=== PATIENT | male | born 1960 | race Caucasian/White ===

== ENCOUNTER 2019-01-20 13:37 | Inpatient (IN) | payer BC, MEDICARE, OTHER ==
[2019-01-20 14:11] LABS: #Basophils 0.1 thou/uL (0.0-0.2); #Eosinphils 0.2 thou/uL (0.0-0.7); #Lymphocytes 3.1 thou/uL (1.20-3.40); #Monocytes 1.2 thou/uL (0.11-0.59); #Neutrophils 10.4 thou/uL (1.40-6.50); %Basophils 0.5 % (0.0-1.0); %Eosinophils 1.6 % (0.0-10.0); %Lymphocytes 20.5 % (21.0-51.0); %Monocytes 8.2 % (0.0-10.0); %Neutrophils 69.2 % (42.0-75.0); Hemoglobin 12.7 g/dL (14.0-18.0); Mean Corpuscular HGB CONC 33.5 g/dL (32.0-36.0); Mean Corpuscular Hemoglobin 28.4 pg (27.0-31.0); Mean Corpuscular Volume 84.6 fL (78.0-98.0); Mean Platelet Volume 6.9 fL (7.4-10.4); Platelet Count 388 thou/uL (130-400); RBC Distribution Width 14.4 % (11.5-14.5); Red Blood Cell (RBC) Count 4.49 mill/uL (4.70-6.10)
--- NOTE | 2019-01-20 14:15 | RAD ---
Exam:Right foot 3 views HISTORY: Infection COMPARISON: None FINDINGS: Subcutaneous emphysema and swelling involving the soft tissues at the level of the first an d second digit. Erosive changes involving the distal third metatarsal, proximal third phalanx and proximal fourth phalanx. Correlate for osteomyelitis. IMPRESSION: 1. Soft tissue swelling and subcutaneous emphysema, worrisome for cellulitis at the level of the firs t and second digit. Possible osteomyelitis involving the third and fourth digit.
[2019-01-20 14:34] LABS: ALT (SGPT) 9 U/L (8-55); AST (SGOT) 15 U/L (5-34); Albumin 3.6 g/dL (3.5-5.0); Alkaline Phosphatase 89 U/L (40-150); Anion Gap 18 mmol/L (10-20); BUN (Urea Nitrogen) 14 mg/dL (8.4-25.7); Bilirubin, Total 0.3 mg/dL (0.2-1.2); Calc. Creatinine Clearance 0 mL/min (70-130); Calcium 10.3 mg/dL (7.8-10.44); Carbon Dioxide 24 mmol/L (22-29); Chloride 89 mmol/L (98-107); Estimated GFR-MDRD Greater than 90; Globulin 4.7 g/dL (2.4-3.5); Glucose 105 mg/dL (70-105); Potassium 4.5 mmol/L (3.5-5.1); Protein, Total 8.3 g/dL (6.0-8.3); Sodium 126 mmol/L (136-145)
[2019-01-20] MEDS ORDERED: Cefepime 2 GM VIAL ONE (16:03)
[2019-01-20] MEDS ORDERED: Ondansetron ODT 4 MG TAB PO PRN (17:46)
[2019-01-20] MEDS ORDERED: Ondansetron PF 4 MG/2 ML Vial IVP PRN (17:46)
[2019-01-20] MEDS ORDERED: HumaLOG 300 UNITS/3 ML VIAL SC PRN ×2 (17:52)
[2019-01-20] MEDS ORDERED: Dextrose 50% Abboject 50 ML SYRINGE SLOW IVP PRN (17:52)
[2019-01-20] MEDS ORDERED: Dextrose 5% in Water 1,000 ML IV PRN (17:52)
[2019-01-20 19:19] VITALS: BMI 28.5
[2019-01-20] MEDS: Sodium Chloride 0.9% 1,000 ML IV SCH (19:49)
[2019-01-20] MEDS: Enoxaparin Sodium 40 MG/0.4 ML SYRINGE SC SCH (20:19)
[2019-01-20] MEDS: Famotidine 20 MG TAB PO SCH (20:19)
[2019-01-20] MEDS: Piperacillin/Tazobactam 3.375 GM in Sodium Chloride 0.9% 100 ML IVPB SCH (20:19)
--- NOTE | 2019-01-20 23:23 | HP ---
PRIMARY CARE PHYSICIAN: Dr. Sapna Finney in [place], [place]. CHIEF COMPLAINT: Right lower extremity toe discoloration and infection. HISTORY OF PRESENT ILLNESS: Mr. Rivero is a pleasant 58-year-old male with past medical history significant for type 2 diabetes mellitus, peripheral vascular disease, and obesity, who presented to the hospital today at the behest of Dr. Frazier, with the above complaints. The patient had, had a nonhealing ulcer of the right great toe with subsequent infections spreading to the second, requiring amputation of the right great toe and second toe on December 26, 2018. The patient had been doing well and was continuing to heal well, however, on Monday, approximately 5 days ago, he noticed some discoloration of the 3rd toe. He does remember that although he had been quite careful with his foot, he did step into a pothole of some sort causing some injury to that third digit. In any case, the discoloration became worse, and so he presented to the emergency department for further workup and treatment. The patient denies any nausea or vomiting. No fever or chills. He denies any systemic symptoms at this time. Workup on arrival has included a 3 view x-ray of his right foot, which showed soft tissue swelling and subcutaneous emphysema, worrisome for cellulitis at the level of the first and second digits with possible osteomyelitis involving the third and fourth digits. [place] [id number]. The patient has been afebrile, but was mildly tachycardic on arrival, which has improved with IV fluids. The patient denies any pain from his right lower extremity. The patient does have a history of peripheral vascular disease, status post balloon angioplasty in the past with Dr. Alfaro of [facility]. Records are currently unavailable, so it is unclear on the extent of his peripheral vascular disease and more details about those interventions. He is on aspirin and Plavix. REVIEW OF SYSTEMS: A 12-point review of systems performed and is negative except that stated above. PAST MEDICAL HISTORY: Type 2 diabetes mellitus, hypothyroidism, peripheral vascular disease, nonhealing wound of the right great toe, which has resulted in amputation of the first and second digits on the right foot. PAST SURGICAL HISTORY: Amputation as described above, some type of cardiac catheterization and ablation, which is currently unclear. The patient stated that he had some type of tissue surrounding an artery that was removed. He has also had a surgical brittney placed to the left forearm after previous fracture. SOCIAL HISTORY: The patient is and lives in a small town called [place], [place], which is located outside of [place], [place]. He lives with his and disabled daughter. He denies any alcohol use or illicit drug use. He has no smoking history. FAMILY HISTORY: Noncontributory. ALLERGIES: PENICILLINS. HOME MEDICATIONS: 1. Metformin 1000 mg p.o. b.i.d. with meals. 2. Bactrim 2 tabs p.o. b.i.d. 3. Tramadol 50 mg p.o. q.6 hours p.r.n. 4. Aspirin 81 mg daily. 5. Plavix 75 mg p.o. daily. 6. Levothyroxine 25 mcg tab one p.o. daily. PHYSICAL EXAMINATION: VITAL SIGNS: Blood pressure 151/84, pulse is 93, O2 saturation is 97% on room air, respirations 16, and temperature 98.2. GENERAL: This is an obese male, resting comfortably in the ER bed, in no acute distress. HEENT: Head is atraumatic and normocephalic. Mucous membranes are moist. NECK: Trachea is midline. No carotid bruits. No JVD. CV: S1 and S2. Regular rate and rhythm. No appreciable murmurs, rubs, or gallops. LUNGS: Regular respiratory rate and pattern, overall clear to auscultation bilaterally. ABDOMEN: Positive bowel sounds. Soft, nontender. NEUROLOGIC: Cranial nerves 2 through 12 are grossly intact. The patient is nonfocal. EXTREMITIES: No appreciable pitting edema. Examination of right foot shows amputation of the right great toe and second toe. Surgical wound has no obvious drainage, stitches are in place. His third toe shows some obvious gangrenous changes and erythema extending to the fourth digit and proximally toward the dorsal surface of the foot. There are some desquamation and foul smelling odor as well. LABORATORY DATA: White blood cell count 98159, hemoglobin 12.7, hematocrit 38, platelets are 388. Sodium 126, potassium 4.5, chloride 89, carbon dioxide 24, BUN is 14, creatinine 0.71. Lactic acid was 2.6 and 1.0 respectively. AST 15, ALT 9, alkaline phosphatase is 89, and albumin is 3.6. ASSESSMENT: 1. Osteomyelitis of the third and fourth toes of right lower extremity, patient meeting sepsis criteria on arrival. 2. Status post recent amputation of the great and second toe of the right foot on December 26, 2018 after nonhealing diabetic foot ulcer. 3. Peripheral vascular disease, status post balloon angioplasty with Dr. Alfaro in [place]. 4. Type 2 diabetes mellitus. 5. Hyponatremia. PLAN: At this time, Dr. Frazier has been consulted for possible amputation of the third and fourth toes vs transmetarsal amputation. We will obtain an MRI as well as a right lower extremity Doppler to assess the extent of his peripheral vascular disease. We will try and obtain records from Dr. Alfaro at [facility]. I will continue his home medications. We will cover empirically with vancomycin and Zosyn, and continue IV fluid resuscitation as the patient did meet sepsis criteria on arrival. We will obtain an A1c as well as repeat lab work in the morning. Further recommendations based on hospital course. Blood cultures pending. Job ID: [id number] MTDD
[2019-01-21] MEDS: Piperacillin/Tazobactam 3.375 GM in Sodium Chloride 0.9% 100 ML IVPB SCH ×4 (01:46→20:12)
[2019-01-21] MEDS: Vancomycin HCl 1 GM in Premix Bag 1 BAG IVPB SCH ×2 (05:53→18:35)
[2019-01-21] MEDS: Levothyroxine Sodium 25 MCG TAB PO SCH (05:53)
[2019-01-21] MEDS: Sodium Chloride 0.9% 1,000 ML IV SCH ×3 (05:55→20:15)
[2019-01-21 06:22] LABS: #Eosinphils 0.3 thou/uL (0.0-0.7); #Lymphocytes 1.9 thou/uL (1.20-3.40); #Neutrophils 6.9 thou/uL (1.40-6.50); %Basophils 0.4 % (0.0-1.0); %Eosinophils 3.4 % (0.0-10.0); %Lymphocytes 18.7 % (21.0-51.0); %Monocytes 10.1 % (0.0-10.0); %Neutrophils 67.5 % (42.0-75.0); Hemoglobin 10.8 g/dL (14.0-18.0); Mean Corpuscular HGB CONC 31.8 g/dL (32.0-36.0); Mean Corpuscular Hemoglobin 27.1 pg (27.0-31.0); Mean Corpuscular Volume 85.2 fL (78.0-98.0); Mean Platelet Volume 6.9 fL (7.4-10.4); Platelet Count 305 thou/uL (130-400); RBC Distribution Width 14.4 % (11.5-14.5); Red Blood Cell (RBC) Count 3.99 mill/uL (4.70-6.10); White Blood Cell (WBC) Count 10.2 thou/uL (4.8-10.8)
[2019-01-21 06:36] LABS: Anion Gap 13 mmol/L (10-20); BUN (Urea Nitrogen) 10 mg/dL (8.4-25.7); Calc. Creatinine Clearance 177 mL/min (70-130); Calcium 9.3 mg/dL (7.8-10.44); Carbon Dioxide 25 mmol/L (22-29); Chloride 94 mmol/L (98-107); Estimated GFR-MDRD Greater than 90; Glucose 114 mg/dL (70-105); Potassium 3.9 mmol/L (3.5-5.1); Sodium 128 mmol/L (136-145)
[2019-01-21] MEDS: Clopidogrel Bisulfate 75 MG TAB PO SCH (08:17)
[2019-01-21] MEDS: Saccharomyces boulardii 250 MG CAP PO SCH (08:17)
[2019-01-21] MEDS: Famotidine 20 MG TAB PO SCH ×2 (08:17→20:11)
[2019-01-21] MEDS: Aspirin 81 mg Enteric Coated Tablet PO SCH (08:18)
--- NOTE | 2019-01-21 11:21 | ULT ---
ULTRASOUND DOPPLER DUPLEX ARTERIAL RIGHT LOWER EXTREMITY: DATE: 01/21/2019. HISTORY: A 58-year-old male with osteomyelitis of right toes. Peripheral vascular disease. TECHNIQUE: Sethi scale, color flow, and spectral analysis, of major arteries of right lower extremity. FINDINGS: Moderate to severe, heavily calcified atheromatous plaque throughout all visualized arteries. Highest peak systolic velocities in cm/s followed by pulsed Doppler waveforms: Common femoral: 105, biphasic Profunda femoral: 95, biphasic Superficial femoral, proximal: 125, triphasic Superficial femoral, mid: 85, triphasic Superficial femoral, distal: 90, triphasic Popliteal, proximal: 75, triphasic Popliteal, mid: 80, triphasic Popliteal, distal: 150, triphasic Posterior tibial, proximal: 20, monophasic Posterior tibial, mid: 30, monophasic Posterior tibial, distal: 30, monophasic Anterior tibial, proximal: 30, monophasic Anterior tibial, mid: 15, monophasic Anterior tibial, distal: 15, monophasic Dorsalis pedis: 100, monophasic IMPRESSION: 1. Significant atherosclerosis throughout all arteries of right lower extremity. 2. Evidence for high-grade arterial occlusive disease in right leg distal to the knee. POS: CET
--- NOTE | 2019-01-21 16:10 | PDOC.HOSPP ---
- Subjective Encounter Date: 01/21/19 Encounter Time: 15:50 Subjective: f/u for R foot osteomyelitis and PVD. Currently on Zosyn/Vancomycin. No new complaints. Had recent angioplasty and stent of bilat LE's within the last 4 weeks in [place], [place]. - Objective Vital Signs & Weight: Vital Signs (12 hours) Temp Pulse Resp BP BP Pulse Ox 01/21/19 11:06 98.6 F 87 16 146/76 H 96 01/21/19 07:43 97.8 F 85 16 155/82 H 98 01/21/19 04:11 98.2 F 93 16 144/80 H 97 Weight Admit Weight 205 lb 0.126 oz Weight 205 lb 0.126 oz Result Diagrams: 01/21/19 05:50 01/21/19 05:50 Additional Labs: Accuchecks 01/21/19 01/20/19 04:16 19:45 POC Glucose 114 H 107 Microbiology 01/20/19 14:01 Venous blood - Right Hand Blood Culture - Preliminary Specimen has been received and culture in progress. No Growth to date. 01/20/19 14:01 Venous blood - Left Arm Blood Culture - Preliminary Specimen has been received and culture in progress. No Growth to date. Laboratory Tests 01/20/19 01/20/19 01/20/19 14:01 14:01 14:01 WBC 15.0 H Sodium 126 L Lactic Acid 2.6 H 01/20/19 17:56 WBC Sodium Lactic Acid 1.0 Radiology Reviewed by me: Yes (LE duplex art sono - severe PVD below the knee on R) ROS - Medication Medications: Active Medications Generic Name Dose Route Start Last Admin Trade Name Ean PRN Reason Stop Dose Admin Aspirin 81 mg 01/21/19 09:00 01/21/19 08:18 Ecotrin PO 81 mg DAILY MARLYN Administration Clopidogrel Bisulfate 75 mg 01/21/19 09:00 01/21/19 08:17 Plavix PO 75 mg DAILY MARLYN Administration Enoxaparin Sodium 40 mg 01/20/19 21:00 01/20/19 20:19 Lovenox SC Not Given 2100 MARLYN Famotidine 20 mg 01/20/19 21:00 01/21/19 08:17 Pepcid PO 20 mg BID MARLYN Administration Sodium Chloride 1,000 mls @ 100 mls/hr 01/20/19 18:00 01/21/19 05:55 Normal Saline 0.9% IV 1,000 mls .Q10H MARLYN Administration Vancomycin HCl 1 gm/ Device 200 mls @ 200 mls/hr 01/21/19 06:00 01/21/19 05: 53 IVPB 200 mls 0600,1800 MARLYN Administration Piperacillin Sod/Tazobactam 100 mls @ 200 mls/hr 01/20/19 20:00 01/21/19 14: 48 Sod 3.375 gm/ Sodium Chloride IVPB 100 mls 0200,0800,1400,2000 MARLYN Administration Levothyroxine Sodium 25 mcg 01/21/19 06:00 01/21/19 05:53 Synthroid PO 25 mcg 0600 MARLYN Administration Saccharomyces Boulardii 250 mg 01/21/19 09:00 01/21/19 08:17 Florastor PO 250 mg DAILY MARLYN Administration - Exam NAD, awake alert Eye: PERRL, anicteric sclera ENT: normocephalic atraumatic, no oropharyngeal lesions Neck: supple, symmetric, no JVD, no thyromegaly, no lymphadenopathy Heart: RRR, no murmur, no gallops, no rubs, diminshed peripheral pulses Respiratory: CTAB, no wheezes, no rales, no ronchi, normal chest expansion Gastrointestinal: soft, non-tender, non-distended, normal bowel sounds Extremities: no cyanosis, 1+ LE edema Extremeties - other findings: R foot with kerlex dressing in place Skin: normal turgor Skin - other findings: diminished DP/PT pulses on R Neurological: CN's grossly intact, no focal deficits, no new deficit Musculoskeletal: normal tone, normal strength Psychiatric: normal affect, normal behavior, A&O x 3 Hosp A/P (1) Osteomyelitis of right foot Code(s): M86.9 - OSTEOMYELITIS, UNSPECIFIED Status: Acute Qualifiers: Osteomyelitis type: subacute Qualified Code(s): M86.271 - Subacute osteomyelitis, right ankle and foot Plan: Suspected given plain radiographs, check MRI of R foot to confirm, continue Zosyn/Vancomycin, consult Podiatry for surgical consideration (2) PVD (peripheral vascular disease) Code(s): I73.9 - PERIPHERAL VASCULAR DISEASE, UNSPECIFIED Status: Chronic Plan: Consult Vascular Surgery for evaluation, hx of prior angioplasty/stent to RLE, continue ASA/Plavix (3) Hyponatremia Code(s): E87.1 - HYPO-OSMOLALITY AND HYPONATREMIA Status: Chronic Plan: Suspect chronic component, serial monitoring (4) DM (diabetes mellitus) type II uncontrolled, periph vascular disorder Code(s): E11.51 - TYPE 2 DIABETES W DIABETIC PERIPHERAL ANGIOPATH W/O GANGRENE; E11.65 - TYPE 2 DIABETES MELLITUS WITH HYPERGLYCEMIA Status: Chronic Plan: Resume Metformin, serial accuchecks - Plan continue antibiotics, out of bed/ambulate Stable currently Consult Vasc Surgery for opinion regarding RLE PVD and lack of flow in distal RLE Continue ASA/Plavix Continue Vanc/Zosyn WCT for local care AM lab: BMP, CBC
[2019-01-21 18:07] LABS: Vancomycin, Trough 5.9 ug/mL
[2019-01-21] MEDS: Enoxaparin Sodium 40 MG/0.4 ML SYRINGE SC SCH (19:07)
[2019-01-22] MEDS: Piperacillin/Tazobactam 3.375 GM in Sodium Chloride 0.9% 100 ML IVPB SCH ×4 (01:43→22:06)
[2019-01-22] MEDS: Levothyroxine Sodium 25 MCG TAB PO SCH (05:18)
[2019-01-22] MEDS: Vancomycin HCl 1 GM in Premix Bag 1 BAG IVPB SCH (05:18)
[2019-01-22 05:39] LABS: Hemoglobin 11.6 g/dL (14.0-18.0); MDiff Complete? YES; Mean Corpuscular Hemoglobin 28.2 pg (27.0-31.0); Mean Corpuscular Volume 85.4 fL (78.0-98.0); Mean Platelet Volume 7.6 fL (7.4-10.4); Platelet Count 302 thou/uL (130-400); RBC Distribution Width 14.6 % (11.5-14.5); Red Blood Cell (RBC) Count 4.12 mill/uL (4.70-6.10); White Blood Cell (WBC) Count 8.8 thou/uL (4.8-10.8)
[2019-01-22 05:40] LABS: Eosinophils 4 % (0-10); Lymphocytes 19 % (21-51); Monocytes 8 % (0-10); Neutrophil 69 % (42-75); Platelet Morphology Comment Appears Adequate
[2019-01-22 05:49] LABS: Anion Gap 13 mmol/L (10-20); BUN (Urea Nitrogen) 6 mg/dL (8.4-25.7); Calc. Creatinine Clearance 151 mL/min (70-130); Calcium 9.4 mg/dL (7.8-10.44); Carbon Dioxide 25 mmol/L (22-29); Chloride 98 mmol/L (98-107); Estimated GFR-MDRD Greater than 90; Glucose 138 mg/dL (70-105); Potassium 4.7 mmol/L (3.5-5.1); Sodium 131 mmol/L (136-145)
[2019-01-22] MEDS: Aspirin 81 mg Enteric Coated Tablet PO SCH (08:53)
[2019-01-22] MEDS: Clopidogrel Bisulfate 75 MG TAB PO SCH (08:53)
[2019-01-22] MEDS: Saccharomyces boulardii 250 MG CAP PO SCH (08:53)
[2019-01-22] MEDS: Famotidine 20 MG TAB PO SCH ×2 (08:53→22:06)
[2019-01-22] MEDS: Sodium Chloride 0.9% 1,000 ML IV SCH ×2 (08:54→22:07)
[2019-01-22] MEDS: traMADol HCl 50 MG TAB PO PRN (08:56)
[2019-01-22] MEDS ORDERED: Vancomycin HCl 1.5 GM in Sodium Chloride 0.9% 250 ML 300 ML IVPB SCH (11:00)
[2019-01-22] MEDS ORDERED: Vancomycin HCl 500 MG in Sodium Chloride 0.9% 100 ML IVPB SCH (11:30)
[2019-01-22] MEDS ORDERED: VANCOMYCIN IVPB PRN (12:12)
--- NOTE | 2019-01-22 12:19 | MRI ---
Right foot MRI with and without IV contrast: HISTORY: Infection right foot, possible osteomyelitis, wounds. FINDINGS: Amputation changes are noted of the first and second toes at the level of the mid distal metatarsals with abnormal marrow signal evidence for osteomyelitis. There is extensive soft tissue wound distal to the amputated first and second metatarsals and medial to the third metatarsal phalangeal joint reg ion evidence for soft tissue gas and soft tissue infection. There is some abnormal T1 and T2 signal within the fourth distal metatarsal and proximal phalanx evidence for osteomyelitis. There is also ab normal marrow signal involving the distal third metatarsal and proximal phalanx evidence for osteomyelitis. No evidence for an overt drainable abscess. Nonspecific T2 hyperintensity within the i ntrinsic muscles of the foot which certainly can be seen in diabetes. Diffuse primarily dorsal and medial subcutaneous swelling evidence for cellulitis. Exam is severely limited because of extensive motion artifact. IMPRESSION: Extensive soft tissue gas evidence for soft tissue infection distal to the fourth and fifth amputated metatarsals and medial to the third metatarsal phalangeal joint region. Evidence for osteomyelitis involving the distal fifth metatarsal, distal fourth metatarsal, and metat arsal and proximal phalanges of the third and fourth toes. Very extensive open wound extending from medially to the distal amputated first and second metatarsal as well as around the third metatarsal p halangeal joint region
--- NOTE | 2019-01-22 15:33 | PDOC.HOSPP ---
- Subjective Encounter Date: 01/22/19 Encounter Time: 15:10 Subjective: f/u for R foot gangrene, osteomyelitis confirmed on MRI. Plan for transmetatarsal amputation on 01/24/19. - Objective Vital Signs & Weight: Vital Signs (12 hours) Temp Pulse Resp BP Pulse Ox 01/22/19 08:00 93 L 01/22/19 07:56 97.5 F L 91 20 142/63 H 93 L Weight Admit Weight 205 lb 0.126 oz Weight 205 lb 0.126 oz Result Diagrams: 01/22/19 05:08 01/22/19 05:08 Additional Labs: Accuchecks 01/22/19 01/22/19 01/21/19 12:58 04:13 19:41 POC Glucose 143 H 183 H 163 H 01/21/19 01/21/19 16:44 11:08 POC Glucose 154 H 156 H Microbiology 01/20/19 14:01 Venous blood - Right Hand Blood Culture - Preliminary Specimen has been received and culture in progress. No Growth to date. 01/20/19 14:01 Venous blood - Left Arm Blood Culture - Preliminary Specimen has been received and culture in progress. No Growth to date. Laboratory Tests 01/20/19 01/20/19 01/20/19 14:01 14:01 14:01 WBC 15.0 H Sodium 126 L Lactic Acid 2.6 H 01/20/19 17:56 WBC Sodium Lactic Acid 1.0 Radiology Reviewed by me: Yes (MRI R foot - extensive necrosis, osteomyelitis of metatarsals/phalanges) Hospitalist ROS - Medication Medications: Active Medications Generic Name Dose Route Start Last Admin Trade Name Ean PRN Reason Stop Dose Admin Aspirin 81 mg 01/21/19 09:00 01/22/19 08:53 Ecotrin PO 81 mg DAILY MARLYN Administration Clopidogrel Bisulfate 75 mg 01/21/19 09:00 01/22/19 08:53 Plavix PO 75 mg DAILY MARLYN Administration Enoxaparin Sodium 40 mg 01/20/19 21:00 01/21/19 19:07 Lovenox SC Not Given 2100 MARLYN Famotidine 20 mg 01/20/19 21:00 01/22/19 08:53 Pepcid PO 20 mg BID MARLYN Administration Sodium Chloride 1,000 mls @ 100 mls/hr 01/20/19 18:00 01/22/19 08:54 Normal Saline 0.9% IV 1,000 mls .Q10H MARLYN Administration Piperacillin Sod/Tazobactam 100 mls @ 200 mls/hr 01/20/19 20:00 01/22/19 14: 34 Sod 3.375 gm/ Sodium Chloride IVPB 100 mls 0200,0800,1400,2000 MARLYN Administration Levothyroxine Sodium 25 mcg 01/21/19 06:00 01/22/19 05:18 Synthroid PO 25 mcg 0600 MARLYN Administration Saccharomyces Boulardii 250 mg 01/21/19 09:00 01/22/19 08:53 Florastor PO 250 mg DAILY MARLYN Administration Tramadol HCl 50 mg 01/20/19 18:02 01/22/19 08:56 Ultram PO 50 mg Q6H PRN Administration Moderate Pain (4-6) - Exam General Appearance: NAD, awake alert Eye: PERRL, anicteric sclera ENT: normocephalic atraumatic, no oropharyngeal lesions Neck: supple, symmetric, no JVD, no thyromegaly, no lymphadenopathy Heart: RRR, no murmur, no gallops, no rubs Respiratory: CTAB, no wheezes, no rales, no ronchi, normal chest expansion Gastrointestinal: soft, non-tender, non-distended, normal bowel sounds Extremeties - other findings: R foot with extensive gangrenous changes, necrosis Neurological: CN's grossly intact, no new deficit Musculoskeletal: normal tone, normal strength Psychiatric: normal affect, normal behavior, A&O x 3 Hosp A/P (1) Gangrene of right foot Code(s): I96 - GANGRENE, NOT ELSEWHERE CLASSIFIED Status: Acute Plan: Extensive necrosis of R distal foot, plan for transmetatarsal amputation on 01/24, continue IV Vanc/Zosyn (2) Osteomyelitis of right foot Code(s): M86.9 - OSTEOMYELITIS, UNSPECIFIED Status: Acute Qualifiers: Osteomyelitis type: subacute Qualified Code(s): M86.271 - Subacute osteomyelitis, right ankle and foot Plan: See above in #1 (3) PVD (peripheral vascular disease) Code(s): I73.9 - PERIPHERAL VASCULAR DISEASE, UNSPECIFIED Status: Chronic (4) Hyponatremia Code(s): E87.1 - HYPO-OSMOLALITY AND HYPONATREMIA Status: Chronic (5) DM (diabetes mellitus) type II uncontrolled, periph vascular disorder Code(s): E11.51 - TYPE 2 DIABETES W DIABETIC PERIPHERAL ANGIOPATH W/O GANGRENE; E11.65 - TYPE 2 DIABETES MELLITUS WITH HYPERGLYCEMIA Status: Chronic - Plan continue antibiotics, manager social media Stable currently Appreciate Vasc surgery assistance Continue ASA/Plavix Continue Vanc/Zosyn WCT for local care, likely will need wound vac post-op
[2019-01-22] MEDS: Vancomycin HCl 1.5 GM in Sodium Chloride 0.9% 250 ML 300 ML IVPB SCH (17:32)
--- NOTE | 2019-01-22 20:02 | CON ---
DATE OF CONSULTATION: 01/22/2019 REQUESTING PHYSICIANS: 1. Dr. Meyer. 2. Podiatry, Dr. Frazier. CHIEF COMPLAINT: Nonhealing right foot wounds. HISTORY OF PRESENT ILLNESS: The patient is a 58-year-old diabetic man, although he says that he is in the process of looking for a primary care as primary care was listed as Dr. Sapna Finney in [place]. He sees Dr. Frazier for Podiatry and was sent to Dr. Alfaro in [place] for percutaneous peripheral vascular work. The patient is a somewhat challenging historian, in addition to the lack of continuity of care, inherent in seeing him at this point in his present illness. Apparently sometime last winter, the patient developed a blister on the medial aspect of his right great toe that he attributed to a poorly fitting shoes. He described topical application of ointments and use of antibiotics soaks with improvement in that area, but sometime around a month ago, he had progression of gangrenous changes leading to ray amputation of his 1st and 2nd toes. It is not clear to me in spite of repeated questioning whether percutaneous revascularization was done prior to or following that amputation, but in talking to the patient, it sounds like whichever it was the 2 were done in close proximity to each other. He apparently went to a checkup with his buyer assistant and grows back. His wound was not healing well and the 3rd toe developed gangrenous changes and he was referred here. The patient has. PAST MEDICAL HISTORY: Significant for diabetes and sarcoidosis. CURRENT MEDICATIONS: 1. Metformin 1000 mg b.i.d. 2. Aspirin 81 mg a day. 3. Plavix 75 mg a day. 4. Synthroid 25 mcg a day p.r.n. 5. Tramadol. 6. Currently has been taking a course of Bactrim. 7. He has been put on a sliding scale insulin regimen and started on Zosyn. ALLERGIES: THE CHART LISTS HIM HAVING A PENICILLIN ALLERGY. SOCIAL HISTORY: He is a nonsmoker. REVIEW OF SYSTEMS: Negative for antecedent claudication. PHYSICAL EXAMINATION: VITAL SIGNS: 5 foot 11 inches, weighs 205 pounds, heart rate is in 90s, and blood pressure 142/63, T-max this hospitalization has been 98.5. LUNGS: He has clear breath sounds. A well-healed surgical scar status post CME. HEART: He has regular rate and rhythm. He has no xanthelasma. He has palpable femoral pulses without bruits. His left femoral pulse feels somewhat diminished. I am not able to palpate popliteal pulses or pedal pulses. He has a strong Doppler signal in the right dorsalis pedis and posterior tibial and weaker Doppler signal in the right peroneal. He has a necrotic skin edges extending along the plantar aspect of the right first and second ray amputation. The third toe is turning black at the proximal medial apex of his wound deep to the eschar. There appears to be granulation tissue. There is some macerations between the fourth and fifth toes, but no discolorations in the fourth and fifth toes are pink, but capillary refill is approaching 3 seconds and I was not able to Doppler any pulses at the base of those toes. White count on admission was 15.0 and this morning was 8.8, hemoglobin is 11.6, and platelets 302,000. His sodium was 126 on admission, 128 yesterday and 131 this morning. Creatinine 0.7. Blood sugars have been mostly in the 150 to 180 range on admission. They were 105. The albumin is 3.6. LFTs are normal. Calcium is 10.3. The plain films of his foot showed soft tissue air associated with his open wound. The MRI suggests osteomyelitis of the distal fourth and fifth metatarsals and the proximal phalanges of the third and fourth toes. IMPRESSION AND RECOMMENDATIONS: Clinically, he has good Doppler signals out to the mid foot and the skin at the ball of the foot on the plantar aspect for the most part looks viable, I think is very unlikely that simply amputating the gangrenous third toe would be adequate even if that were not the issue of osteomyelitis involving the bones of the fourth and fifth toes. Transmetatarsal amputation may be reasonable to try and I have discussed doing that but leaving the wound open and probably applying a wound VAC. I am going to defer repeating vascular studies at this point, but I have emphasized to him the disadvantage that this lack of continuity of care puts both him and his physicians caring for him. Job ID: [id number]
[2019-01-22] MEDS: Enoxaparin Sodium 40 MG/0.4 ML SYRINGE SC SCH (22:07)
[2019-01-23] MEDS: Piperacillin/Tazobactam 3.375 GM in Sodium Chloride 0.9% 100 ML IVPB SCH ×4 (02:51→21:15)
[2019-01-23] MEDS: Acetaminophen 325 MG TAB PO PRN (05:00)
[2019-01-23] MEDS: Levothyroxine Sodium 25 MCG TAB PO SCH (05:00)
[2019-01-23] MEDS: Vancomycin HCl 1.5 GM in Sodium Chloride 0.9% 250 ML 300 ML IVPB SCH ×2 (05:01→17:46)
[2019-01-23] MEDS: Sodium Chloride 0.9% 1,000 ML IV SCH ×2 (06:42→17:19)
[2019-01-23] MEDS: Aspirin 81 mg Enteric Coated Tablet PO SCH (08:48)
[2019-01-23] MEDS: Saccharomyces boulardii 250 MG CAP PO SCH (08:48)
[2019-01-23] MEDS: Famotidine 20 MG TAB PO SCH ×2 (08:48→21:16)
[2019-01-23] MEDS: Clopidogrel Bisulfate 75 MG TAB PO SCH (08:48)
--- NOTE | 2019-01-23 11:02 | PDOC.HOSPP ---
- Subjective Encounter Date: 01/23/19 Subjective: f/u R. foot gangrene s/p amputation of R. 1st/2nd digits before initial admission. MRI also confirmed osteomyelitis of 3rd/4th proximal phalanges and distal 4th/5th metatarsals. Transmetatarsal amputation planned for 01/24. Is currently receiving vanc/zosyn. Patient did well overnight and has no new complaints. - Objective Vital Signs & Weight: Vital Signs (12 hours) Temp Pulse Resp BP BP Pulse Ox 01/23/19 08:00 97.5 F L 98 20 176/100 H 96 01/23/19 04:00 98.1 F 103 H 20 150/82 H 95 01/23/19 00:00 98.2 F 97 20 161/83 H 97 Weight Admit Weight 92.99 kg Weight 92.99 kg Result Diagrams: 01/22/19 05:08 01/22/19 05:08 Additional Labs: Accuchecks 01/22/19 01/22/19 01/22/19 19:39 16:27 12:58 POC Glucose 110 162 H 143 H Na+ was 126 on admission, 131 on 01/22. H&H has remained stable over course of admission. Hospitalist ROS - Review of Systems Constitutional: denies: fever, chills, weakness ENT: denies: nose discharge, nose congestion, throat pain Respiratory: denies: cough, shortness of breath Cardiovascular: denies: chest pain, palpitations, edema, light headedness Gastrointestinal: denies: nausea, vomitting, abdominal pain, diarrhea, constipation Genitourinary: denies: dysuria, frequency Neurological: denies: weakness, numbness - Medication Medications: Active Medications Generic Name Dose Route Start Last Admin Trade Name Freq PRN Reason Stop Dose Admin Acetaminophen 650 mg 01/20/19 17:46 01/23/19 05:00 Tylenol PO 650 mg Q4H PRN Administration Headache/Fever/Mild Pain (1-3) Aspirin 81 mg 01/21/19 09:00 01/23/19 08:48 Ecotrin PO 81 mg DAILY MARLYN Administration Clopidogrel Bisulfate 75 mg 01/21/19 09:00 01/23/19 08:48 Plavix PO 75 mg DAILY MARLYN Administration Enoxaparin Sodium 40 mg 01/20/19 21:00 01/22/19 22:07 Lovenox SC Not Given 2100 MARLYN Famotidine 20 mg 01/20/19 21:00 01/23/19 08:48 Pepcid PO 20 mg BID MARLYN Administration Sodium Chloride 1,000 mls @ 100 mls/hr 01/20/19 18:00 01/23/19 06:42 Normal Saline 0.9% IV Not Given .Q10H MARLYN Piperacillin Sod/Tazobactam 100 mls @ 200 mls/hr 01/20/19 20:00 01/23/19 08: 48 Sod 3.375 gm/ Sodium Chloride IVPB 100 mls 0200,0800,1400,2000 MARLYN Administration Vancomycin HCl 1.5 gm/ Sodium 300 mls @ 300 mls/hr 01/22/19 18:00 01/23/19 05 :01 Chloride IVPB 300 mls 0600,1800 MARLYN Administration Levothyroxine Sodium 25 mcg 01/21/19 06:00 01/23/19 05:00 Synthroid PO 25 mcg 0600 MARLYN Administration Saccharomyces Boulardii 250 mg 01/21/19 09:00 01/23/19 08:48 Florastor PO 250 mg DAILY MARLYN Administration Tramadol HCl 50 mg 01/20/19 18:02 01/22/19 08:56 Ultram PO 50 mg Q6H PRN Administration Moderate Pain (4-6) - Exam General Appearance: awake alert Eye: PERRL ENT: normocephalic atraumatic, no oropharyngeal lesions, moist mucosa Neck: supple, symmetric, no JVD Heart: RRR, no murmur, no gallops, no rubs Respiratory: CTAB, no wheezes, no rales, no ronchi, normal chest expansion, no tachypnea Gastrointestinal: soft, non-tender, non-distended, normal bowel sounds, no palpable masses Extremities: no cyanosis, no clubbing, no edema Skin - other findings: R. foot wound is wrapped. Dressing is clean and dry. Hosp A/P (1) Gangrene of right foot Code(s): I96 - GANGRENE, NOT ELSEWHERE CLASSIFIED Status: Acute Plan: Continue vanc/zosyn. Wound care following. Transmetatarsal amputation planned for 01/24. Pain control as clinically indicated (2) Osteomyelitis of right foot Code(s): M86.9 - OSTEOMYELITIS, UNSPECIFIED Status: Acute Qualifiers: Osteomyelitis type: subacute Qualified Code(s): M86.271 - Subacute osteomyelitis, right ankle and foot (3) PVD (peripheral vascular disease) Code(s): I73.9 - PERIPHERAL VASCULAR DISEASE, UNSPECIFIED Status: Chronic (4) Hyponatremia Code(s): E87.1 - HYPO-OSMOLALITY AND HYPONATREMIA Status: Chronic (5) DM (diabetes mellitus) type II uncontrolled, periph vascular disorder Code(s): E11.51 - TYPE 2 DIABETES W DIABETIC PERIPHERAL ANGIOPATH W/O GANGRENE; E11.65 - TYPE 2 DIABETES MELLITUS WITH HYPERGLYCEMIA Status: Chronic (6) HTN (hypertension) Code(s): I10 - ESSENTIAL (PRIMARY) HYPERTENSION Status: Chronic Qualifiers: Hypertension type: essential hypertension Qualified Code(s): I10 - Essential (primary) hypertension Plan: Apparent new dx, start Lisinopril 10mg BID, serial BP monitoring - Plan continue antibiotics, PT/OT, social problems specialist Transmetatarsal amputation planned for 01/24 Consider rehab post-surgically, PT evaluation for mobilization and functional assessment post-op Continue ASA/Plavix Continue Vanc/Zosyn Wound care for R. foot Start Lisinopril 10mg BID Decrease IVF's 75ml/h NPO after MN
[2019-01-23] MEDS ORDERED: Lisinopril 10 MG TAB PO SCH (15:30)
[2019-01-23 17:22] LABS: Vancomycin, Trough 15.2 ug/mL
[2019-01-23] MEDS: Enoxaparin Sodium 40 MG/0.4 ML SYRINGE SC SCH (21:16)
[2019-01-23] MEDS: Lisinopril 10 MG TAB PO SCH (21:16)
[2019-01-24] MEDS: Piperacillin/Tazobactam 3.375 GM in Sodium Chloride 0.9% 100 ML IVPB SCH ×5 (01:55→22:04)
[2019-01-24] MEDS ORDERED: Clopidogrel Bisulfate 75 MG TAB ONE (05:42)
[2019-01-24] MEDS: Vancomycin HCl 1.5 GM in Sodium Chloride 0.9% 250 ML 300 ML IVPB SCH ×2 (05:45→18:12)
[2019-01-24] MEDS: Sodium Chloride 0.9% 1,000 ML IV SCH ×3 (05:56→22:12)
[2019-01-24] MEDS: Levothyroxine Sodium 25 MCG TAB PO SCH (05:57)
[2019-01-24] MEDS ORDERED: Fentanyl 100 MCG/2 ML VIAL ONE ×2 (07:29→09:17)
[2019-01-24] MEDS ORDERED: Promethazine HCl 25 MG/ML VIAL SLOW IVP PRN (08:00)
[2019-01-24] MEDS ORDERED: PACU-Morphine 4MG/ML VIAL SLOW IVP PRN (08:00)
[2019-01-24] MEDS ORDERED: HYDROmorphone 2 MG/ML VIAL SLOW IVP PRN (08:00)
[2019-01-24] MEDS ORDERED: Ondansetron HCl/PF 4 MG/2 ML Vial IVP PRN (08:00)
[2019-01-24] MEDS ORDERED: Promethazine HCl 25 MG/ML VIAL IM PRN (08:00)
[2019-01-24] MEDS ORDERED: Morphine Sulfate 2 MG/ML SYRINGE SLOW IVP PRN (08:00)
[2019-01-24] MEDS ORDERED: PROPOFOL 200 MG/20 ML VIAL ONE (10:45)
[2019-01-24] MEDS ORDERED: Lidocaine 1% PF 5 ML VIAL ONE (10:45)
[2019-01-24] MEDS ORDERED: Metoclopramide HCl 10 MG/2 ML VIAL ONE (10:45)
[2019-01-24] MEDS ORDERED: Ondansetron PF 4 MG/2 ML Vial ONE (10:45)
[2019-01-24] MEDS: Aspirin 81 mg Enteric Coated Tablet PO SCH (11:10)
[2019-01-24] MEDS: Saccharomyces boulardii 250 MG CAP PO SCH (11:10)
[2019-01-24] MEDS: Clopidogrel Bisulfate 75 MG TAB PO SCH (11:14)
[2019-01-24] MEDS: Famotidine 20 MG TAB PO SCH ×2 (11:14→20:46)
[2019-01-24] MEDS: Lisinopril 10 MG TAB PO SCH ×2 (13:04→20:46)
--- NOTE | 2019-01-24 15:48 | OP ---
DATE OF PROCEDURE: 01/24/2019 PROCEDURE PERFORMED: Right transmetatarsal amputation. PREOPERATIVE DIAGNOSIS: Peripheral vascular disease with nonhealing right first and second toe ray amputations and gangrenous third toe. POSTOPERATIVE DIAGNOSIS: Peripheral vascular disease with nonhealing right first and second toe ray amputations and gangrenous third toe. ANESTHESIA: General LMA. INDICATIONS: The patient is a 58-year-old diabetic man, who developed ischemic gangrene of his first and second toes and in spite of percutaneous revascularization failed to heal those amputations and has progressed to a gangrene of the third toe, viable toes have very sluggish capillary refill. There are excellent dopplerable pulses in the posterior tibial and dorsalis pedis vessels in the foot and even identifiable peroneal Doppler signal. He is now taken to the operating room for transmetatarsal amputation. FINDINGS: Good bleeding at the cut surfaces. NARRATIVE: After informed consent was obtained, the patient was taken to the operating room, placed in supine position on the operating table. After the induction of general anesthesia, the patient's right lower extremity was prepped and draped in sterile fashion. A skin incision was planned and then sharply made with the medial proximal apex little proximal to the apex of the previous incision. With the incision on the dorsal aspect of the foot angling over toward the base of the fifth toe and then on the plantar surface, the skin incision made right up to the line of demarcation of necrotic tissue. The incision was carried through the remaining dermis and musculature down to the bones using the electrocautery and a transcribing machine mechanic was used to transect the metatarsals. Hemostasis was established with the use of the electrocautery and for a larger more identifiable vasculature Vicryl ties. A rongeur was used to debride the transected metatarsals. On the first toe, the debridement was taken through the articular cartilage at the tarsal metatarsal joint and then a bone rasp was used to smooth the cut edges. The wound was then sharply debrided of obviously nonviable tissue and tissue that would interfere with swinging the plantar flap dorsally. A knife was then used to examine the tissue to identify a quality of bleeding and the skin flaps and the deep tissues were debrided back to bleeding tissue. The wound was irrigated with a Pulsavac device using 3 L of sterile irrigant and final hemostasis was achieved with the electrocautery. The wound VAC was then applied and the patient was taken to the recovery area in stable condition. Job ID: [id number]
[2019-01-24 16:00] LABS: #Basophils 0.1 thou/uL (0.0-0.2); #Eosinphils 0.3 thou/uL (0.0-0.7); #Lymphocytes 2.6 thou/uL (1.20-3.40); %Basophils 0.5 % (0.0-1.0); %Eosinophils 3.2 % (0.0-10.0); %Monocytes 9.7 % (0.0-10.0); %Neutrophils 60.6 % (42.0-75.0); Hemoglobin 9.6 g/dL (14.0-18.0); Mean Corpuscular HGB CONC 33.3 g/dL (32.0-36.0); Mean Corpuscular Hemoglobin 28.7 pg (27.0-31.0); Mean Corpuscular Volume 86.3 fL (78.0-98.0); Mean Platelet Volume 6.8 fL (7.4-10.4); Platelet Count 305 thou/uL (130-400); RBC Distribution Width 14.4 % (11.5-14.5); Red Blood Cell (RBC) Count 3.35 mill/uL (4.70-6.10)
--- NOTE | 2019-01-24 18:16 | PDOC.HOSPP ---
- Subjective Encounter Date: 01/24/19 Encounter Time: 18:00 Subjective: f/u s/p R foot transmetarsal amputation today. Feels ok overall and denies pain. No CP, SOB. - Objective Vital Signs & Weight: Vital Signs (12 hours) Temp Pulse Resp BP BP Pulse Ox 01/24/19 16:00 98.4 F 104 H 16 109/71 96 01/24/19 13:04 106/66 01/24/19 09:55 98 Weight Admit Weight 205 lb 0.126 oz Weight 205 lb 0.126 oz I&O: 01/23/19 01/24/19 01/25/19 06:59 06:59 06:59 Intake Total 1400 Balance 1400 Result Diagrams: 01/24/19 15:50 01/22/19 05:08 Additional Labs: Accuchecks 01/24/19 01/24/19 01/24/19 16:41 11:08 05:30 POC Glucose 200 H 186 H 156 H 01/23/19 01/23/19 01/23/19 19:53 16:36 04:12 POC Glucose 194 H 204 H 126 H Microbiology 01/24/19 08:23 Foot - Bone Bacterial Culture - Preliminary 01/20/19 14:01 Venous blood - Right Hand Blood Culture - Preliminary Specimen has been received and culture in progress. No Growth to date. 01/20/19 14:01 Venous blood - Left Arm Blood Culture - Preliminary Specimen has been received and culture in progress. No Growth to date. Laboratory Tests 01/20/19 01/20/19 01/20/19 14:01 14:01 14:01 WBC 15.0 H Sodium 126 L Lactic Acid 2.6 H 01/20/19 17:56 WBC Sodium Lactic Acid 1.0 Hospitalist ROS - Medication Medications: Active Medications Generic Name Dose Route Start Last Admin Trade Name Freq PRN Reason Stop Dose Admin Acetaminophen 650 mg 01/20/19 17:46 01/23/19 05:00 Tylenol PO 650 mg Q4H PRN Administration Headache/Fever/Mild Pain (1-3) Aspirin 81 mg 01/21/19 09:00 01/24/19 11:10 Ecotrin PO 81 mg DAILY MARLYN Administration Clopidogrel Bisulfate 75 mg 01/21/19 09:00 01/24/19 11:14 Plavix PO 75 mg DAILY MARLYN Administration Enoxaparin Sodium 40 mg 01/20/19 21:00 01/23/19 21:16 Lovenox SC Not Given 2100 MARLYN Famotidine 20 mg 01/20/19 21:00 01/24/19 11:14 Pepcid PO 20 mg BID MARLYN Administration Vancomycin HCl 1.5 gm/ Sodium 300 mls @ 300 mls/hr 01/22/19 18:00 01/24/19 18 :12 Chloride IVPB 300 mls 0600,1800 MARLYN Administration Sodium Chloride 1,000 mls @ 75 mls/hr 01/23/19 15:49 01/24/19 05:56 Normal Saline 0.9% IV Not Given .[id number] MARLYN Piperacillin Sod/Tazobactam 100 mls @ 200 mls/hr 01/24/19 16:00 01/24/19 15: 38 Sod 3.375 gm/ Sodium Chloride IVPB 100 mls Q6H MARLYN Administration Levothyroxine Sodium 25 mcg 01/21/19 06:00 01/24/19 05:57 Synthroid PO Not Given 0600 MARLYN Lisinopril 10 mg 01/23/19 21:00 01/24/19 13:04 Zestril PO Not Given BID [facility] Saccharomyces Boulardii 250 mg 01/21/19 09:00 01/24/19 11:10 Florastor PO 250 mg DAILY MARLYN Administration Sodium Chloride 10 ml 01/24/19 09:00 01/24/19 11:16 Flush - Normal Saline IVF Not Given Q12HR MARLYN Tramadol HCl 50 mg 01/20/19 18:02 01/22/19 08:56 Ultram PO 50 mg Q6H PRN Administration Moderate Pain (4-6) - Exam General Appearance: NAD, awake alert Eye: PERRL, anicteric sclera ENT: normocephalic atraumatic, no oropharyngeal lesions Neck: supple, symmetric, no JVD, no thyromegaly, no lymphadenopathy Heart: RRR, no murmur, no gallops, no rubs Respiratory: CTAB, no wheezes, no rales, no ronchi, normal chest expansion Gastrointestinal: soft, non-tender, non-distended, normal bowel sounds, no palpable masses Extremeties - other findings: R foot with surgical dressing and OTONIEL wrap, blood noted externally Neurological: CN's grossly intact, no focal deficits, no new deficit Musculoskeletal: normal tone, normal strength Psychiatric: normal affect, normal behavior, A&O x 3 Hosp A/P (1) Gangrene of right foot Code(s): I96 - GANGRENE, NOT ELSEWHERE CLASSIFIED Status: Acute Plan: s/p transmetarsal amputation, wound dressing in place, continue Vanc/Zosyn (2) Osteomyelitis of right foot Code(s): M86.9 - OSTEOMYELITIS, UNSPECIFIED Status: Acute Qualifiers: Osteomyelitis type: subacute Qualified Code(s): M86.271 - Subacute osteomyelitis, right ankle and foot Plan: See above, likely will d/c IV abx in next 48h (3) PVD (peripheral vascular disease) Code(s): I73.9 - PERIPHERAL VASCULAR DISEASE, UNSPECIFIED Status: Chronic Plan: ASA/Plavix (4) Hyponatremia Code(s): E87.1 - HYPO-OSMOLALITY AND HYPONATREMIA Status: Chronic (5) DM (diabetes mellitus) type II uncontrolled, periph vascular disorder Code(s): E11.51 - TYPE 2 DIABETES W DIABETIC PERIPHERAL ANGIOPATH W/O GANGRENE; E11.65 - TYPE 2 DIABETES MELLITUS WITH HYPERGLYCEMIA Status: Chronic (6) HTN (hypertension) Code(s): I10 - ESSENTIAL (PRIMARY) HYPERTENSION Status: Chronic Qualifiers: Hypertension type: essential hypertension Qualified Code(s): I10 - Essential (primary) hypertension - Plan continue antibiotics, PT/OT, foster care social worker, out of bed/ambulate Transmetatarsal amputation today Consider rehab post-surgically, PT evaluation for mobilization and functional assessment post-op Continue ASA/Plavix Continue Vanc/Zosyn Wound care for R. foot Start Lisinopril 10mg BID Decrease IVF's 75ml/h AM lab: BMP, CBC
[2019-01-24] MEDS: traMADol HCl 50 MG TAB PO PRN (18:30)
[2019-01-24] MEDS: Enoxaparin Sodium 40 MG/0.4 ML SYRINGE SC SCH (20:45)
[2019-01-25] MEDS: traMADol HCl 50 MG TAB PO PRN (00:14)
[2019-01-25] MEDS: Piperacillin/Tazobactam 3.375 GM in Sodium Chloride 0.9% 100 ML IVPB SCH ×4 (03:39→20:57)
[2019-01-25] MEDS: Levothyroxine Sodium 25 MCG TAB PO SCH (05:21)
[2019-01-25] MEDS: Vancomycin HCl 1.5 GM in Sodium Chloride 0.9% 250 ML 300 ML IVPB SCH (05:21)
[2019-01-25 06:13] LABS: Anion Gap 11 mmol/L (10-20); BUN (Urea Nitrogen) 11 mg/dL (8.4-25.7); Calc. Creatinine Clearance 59 mL/min (70-130); Calcium 8.2 mg/dL (7.8-10.44); Carbon Dioxide 26 mmol/L (22-29); Chloride 98 mmol/L (98-107); Estimated GFR-MDRD 39; Glucose 139 mg/dL (70-105); Potassium 3.7 mmol/L (3.5-5.1); Sodium 131 mmol/L (136-145)
[2019-01-25 06:32] LABS: Band 3 % (5-11); Eosinophils 3 % (0-10); Lymphocytes 22 % (21-51); MDiff Complete? YES; Mean Corpuscular HGB CONC 33.7 g/dL (32.0-36.0); Mean Corpuscular Hemoglobin 28.8 pg (27.0-31.0); Mean Corpuscular Volume 85.5 fL (78.0-98.0); Mean Platelet Volume 6.9 fL (7.4-10.4); Monocytes 4 % (0-10); Neutrophil 68 % (42-75); Platelet Count 273 thou/uL (130-400); RBC Distribution Width 14.5 % (11.5-14.5); Red Blood Cell (RBC) Count 2.78 mill/uL (4.70-6.10); White Blood Cell (WBC) Count 10.4 thou/uL (4.8-10.8)
[2019-01-25] MEDS: Lisinopril 10 MG TAB PO SCH ×2 (08:15→20:56)
[2019-01-25] MEDS: Aspirin 81 mg Enteric Coated Tablet PO SCH (08:15)
[2019-01-25] MEDS: Saccharomyces boulardii 250 MG CAP PO SCH (08:15)
[2019-01-25] MEDS: Famotidine 20 MG TAB PO SCH ×2 (08:15→20:56)
[2019-01-25] MEDS: Clopidogrel Bisulfate 75 MG TAB PO SCH (08:16)
[2019-01-25] MEDS: Sodium Chloride 0.9% 1,000 ML IV SCH ×2 (09:52→16:12)
[2019-01-25 11:32] LABS: Hemoglobin 7.8 g/dL (14.0-18.0); Platelet Count 237 thou/uL (130-400)
--- NOTE | 2019-01-25 13:23 | PDOC.HOSPP ---
- Subjective Encounter Date: 01/25/19 Encounter Time: 13:20 Subjective: f/u for R foot transmetatarsal amputation POD #1. Feels ok overall. Hgb decreased post-op but no transfusion required. - Objective Vital Signs & Weight: Vital Signs (12 hours) Temp Pulse Resp BP BP Pulse Ox 01/25/19 08:15 136/77 01/25/19 07:38 98.4 F 81 16 136/77 97 01/25/19 04:00 97.9 F 87 18 116/67 95 Weight Admit Weight 205 lb 0.126 oz Weight 205 lb 0.126 oz I&O: 01/24/19 01/25/19 01/26/19 06:59 06:59 06:59 Intake Total 1400 1530 Balance 1400 1530 Result Diagrams: 01/25/19 11:24 01/25/19 05:15 Additional Labs: Accuchecks 01/25/19 01/25/19 01/24/19 10:55 04:26 19:56 POC Glucose 175 H 139 H 223 H 01/24/19 16:41 POC Glucose 200 H Microbiology 01/24/19 08:23 Foot - Bone Bacterial Culture - Preliminary 01/24/19 08:23 Foot - Bone Bacterial Culture - Preliminary 01/20/19 14:01 Venous blood - Right Hand Blood Culture - Preliminary Specimen has been received and culture in progress. No Growth to date. 01/20/19 14:01 Venous blood - Left Arm Blood Culture - Preliminary Specimen has been received and culture in progress. No Growth to date. Laboratory Tests 01/20/19 01/20/19 01/20/19 14:01 14:01 14:01 WBC 15.0 H Sodium 126 L Creatinine Lactic Acid 2.6 H 01/20/19 01/22/19 17:56 05:08 WBC Sodium 131 L Creatinine 0.70 Lactic Acid 1.0 Hospitalist ROS - Medication Medications: Active Medications Generic Name Dose Route Start Last Admin Trade Name Freq PRN Reason Stop Dose Admin Acetaminophen 650 mg 01/20/19 17:46 01/23/19 05:00 Tylenol PO 650 mg Q4H PRN Administration Headache/Fever/Mild Pain (1-3) Aspirin 81 mg 01/21/19 09:00 01/25/19 08:15 Ecotrin PO 81 mg DAILY MARLYN Administration Clopidogrel Bisulfate 75 mg 01/21/19 09:00 01/25/19 08:16 Plavix PO 75 mg DAILY MARLYN Administration Enoxaparin Sodium 40 mg 01/20/19 21:00 01/24/19 20:45 Lovenox SC Not Given 2100 MARLYN Famotidine 20 mg 01/20/19 21:00 01/25/19 08:15 Pepcid PO 20 mg BID MARLYN Administration Vancomycin HCl 1.5 gm/ Sodium 300 mls @ 300 mls/hr 01/22/19 18:00 01/25/19 05 :21 Chloride IVPB 300 mls 0600,1800 MARLYN Administration Piperacillin Sod/Tazobactam 100 mls @ 200 mls/hr 01/24/19 16:00 01/25/19 09: 52 Sod 3.375 gm/ Sodium Chloride IVPB 100 mls Q6H MARLYN Administration Sodium Chloride 1,000 mls @ 125 mls/hr 01/25/19 08:56 01/25/19 09:52 Normal Saline 0.9% IV 1,000 mls .Q8H MARLYN Administration Levothyroxine Sodium 25 mcg 01/21/19 06:00 01/25/19 05:21 Synthroid PO 25 mcg 0600 MARLYN Administration Lisinopril 10 mg 01/23/19 21:00 01/25/19 08:15 Zestril PO 10 mg BID [facility] Administration Saccharomyces Boulardii 250 mg 01/21/19 09:00 01/25/19 08:15 Florastor PO 250 mg DAILY MARLYN Administration Sodium Chloride 10 ml 01/24/19 09:00 01/25/19 08:16 Flush - Normal Saline IVF Not Given Q12HR [facility] Tramadol HCl 50 mg 01/20/19 18:02 01/25/19 00:14 Ultram PO 50 mg Q6H PRN Administration Moderate Pain (4-6) - Exam General Appearance: NAD, awake alert Eye: PERRL, anicteric sclera ENT: normocephalic atraumatic, no oropharyngeal lesions Neck: supple, symmetric, no JVD, no thyromegaly, no lymphadenopathy Heart: RRR, no murmur, no gallops, no rubs, normal peripheral pulses Respiratory: CTAB, no wheezes, no rales, no ronchi Gastrointestinal: soft, non-tender, non-distended, normal bowel sounds, no palpable masses Extremeties - other findings: R foot with surgical dressing in place Neurological: CN's grossly intact, no focal deficits, no new deficit Musculoskeletal: normal tone, normal strength Psychiatric: normal affect, normal behavior, A&O x 3 Hosp A/P (1) MICHAEL (acute kidney injury) Code(s): N17.9 - ACUTE KIDNEY FAILURE, UNSPECIFIED Status: Acute Plan: IVF's with NS, avoid nephrotoxic meds and limit contrast exposure (2) Postoperative anemia due to acute blood loss Code(s): D62 - ACUTE POSTHEMORRHAGIC ANEMIA Status: Acute Plan: Serial H/H, may need PRBC's, repeat CBC in am (3) Gangrene of right foot Code(s): I96 - GANGRENE, NOT ELSEWHERE CLASSIFIED Status: Acute Plan: s/p transmetatarsal amputation POD #1, surgical dressing, continue IV abx another 24h then d/c (4) Osteomyelitis of right foot Code(s): M86.9 - OSTEOMYELITIS, UNSPECIFIED Status: Acute Qualifiers: Osteomyelitis type: subacute Qualified Code(s): M86.271 - Subacute osteomyelitis, right ankle and foot Plan: See above (5) PVD (peripheral vascular disease) Code(s): I73.9 - PERIPHERAL VASCULAR DISEASE, UNSPECIFIED Status: Chronic Plan: Continue ASA/Plavix (6) Hyponatremia Code(s): E87.1 - HYPO-OSMOLALITY AND HYPONATREMIA Status: Chronic (7) DM (diabetes mellitus) type II uncontrolled, periph vascular disorder Code(s): E11.51 - TYPE 2 DIABETES W DIABETIC PERIPHERAL ANGIOPATH W/O GANGRENE; E11.65 - TYPE 2 DIABETES MELLITUS WITH HYPERGLYCEMIA Status: Chronic (8) HTN (hypertension) Code(s): I10 - ESSENTIAL (PRIMARY) HYPERTENSION Status: Chronic Qualifiers: Hypertension type: essential hypertension Qualified Code(s): I10 - Essential (primary) hypertension - Plan continue antibiotics, PT/OT, social science teacher, out of bed/ambulate Transmetatarsal amputation POD #1 Consider rehab post-surgically, PT evaluation for mobilization and functional assessment post-op Continue ASA/Plavix Continue Vanc/Zosyn Wound care for R. foot Start Lisinopril 10mg BID IVF's and avoid nephrotoxic meds AM lab: BMP, H/H
[2019-01-25 17:54] LABS: Vancomycin, Trough 48.2 ug/mL
[2019-01-25] MEDS: Enoxaparin Sodium 40 MG/0.4 ML SYRINGE SC SCH (20:53)
[2019-01-26] MEDS: Sodium Chloride 0.9% 1,000 ML IV SCH ×5 (01:30→20:24)
[2019-01-26] MEDS: Piperacillin/Tazobactam 3.375 GM in Sodium Chloride 0.9% 100 ML IVPB SCH ×2 (03:45→10:55)
[2019-01-26] MEDS: traMADol HCl 50 MG TAB PO PRN (03:48)
[2019-01-26] MEDS: Levothyroxine Sodium 25 MCG TAB PO SCH (04:46)
[2019-01-26 06:10] LABS: Hemoglobin 7.8 g/dL (14.0-18.0); Platelet Count 271 thou/uL (130-400)
[2019-01-26 06:18] LABS: Anion Gap 11 mmol/L (10-20); BUN (Urea Nitrogen) 14 mg/dL (8.4-25.7); Calc. Creatinine Clearance 47 mL/min (70-130); Calcium 8.7 mg/dL (7.8-10.44); Carbon Dioxide 25 mmol/L (22-29); Chloride 103 mmol/L (98-107); Estimated GFR-MDRD 30; Glucose 109 mg/dL (70-105); Potassium 4.4 mmol/L (3.5-5.1); Sodium 135 mmol/L (136-145)
[2019-01-26] MEDS: Aspirin 81 mg Enteric Coated Tablet PO SCH (08:51)
[2019-01-26] MEDS: Saccharomyces boulardii 250 MG CAP PO SCH (08:51)
[2019-01-26] MEDS: Clopidogrel Bisulfate 75 MG TAB PO SCH (08:52)
[2019-01-26] MEDS: Famotidine 20 MG TAB PO SCH (08:52)
[2019-01-26] MEDS: Lisinopril 10 MG TAB PO SCH (08:52)
--- NOTE | 2019-01-26 10:20 | PDOC.HOSPP ---
- Subjective Encounter Date: 01/26/19 Subjective: Post-op day 2 s/p transmetatarsal amputation following R. foot gangrene and osteomyelitis. Hgb dropped just below 8 following surgery, but there has not been a need for transfusion to date. H&H is stable today, and patient has no new complaints. Post-surgical MICHAEL is continuing to be monitored and treated with hydration. He has continued to have BMs, and good appetite and po intake. Ambulated yesterday with PT across the room and back. Possible D/C home in the next 24-48 hours pending renal function and anemia status. - Objective Vital Signs & Weight: Vital Signs (12 hours) Temp Pulse Resp BP BP Pulse Ox 01/26/19 08:52 125/73 01/26/19 07:41 98.0 F 92 16 125/73 96 Weight Admit Weight 92.99 kg Weight 92.99 kg I&O: 01/25/19 01/26/19 01/27/19 06:59 06:59 06:59 Intake Total 1530 Balance 1530 Result Diagrams: 01/26/19 05:26 01/26/19 05:26 Additional Labs: Accuchecks 01/26/19 01/25/19 01/25/19 04:48 19:40 15:54 POC Glucose 124 H 148 H 149 H 01/25/19 10:55 POC Glucose 175 H Cr is trending up from 1.79 yesterday. H&H stable from yesterday's 7.8 & 23.8 Microbiology 01/24/19 08:23 Foot - Bone Bacterial Culture - Preliminary 01/24/19 08:23 Foot - Bone Bacterial Culture - Preliminary 01/20/19 14:01 Venous blood - Right Hand Blood Culture - Preliminary Specimen has been received and culture in progress. No Growth to date. 01/20/19 14:01 Venous blood - Left Arm Blood Culture - Preliminary Specimen has been received and culture in progress. No Growth to date. Laboratory Tests 01/20/19 01/20/19 01/20/19 14:01 14:01 14:01 WBC 15.0 H Sodium 126 L Creatinine Lactic Acid 2.6 H 01/20/19 01/22/19 01/25/19 17:56 05:08 05:15 WBC Sodium 131 L Creatinine 0.70 1.79 H Lactic Acid 1.0 Hospitalist ROS - Review of Systems Constitutional: denies: fever, chills, weakness ENT: denies: nose discharge, nose congestion, throat pain Respiratory: denies: cough, shortness of breath Cardiovascular: denies: chest pain, palpitations, edema, light headedness Gastrointestinal: denies: nausea, vomitting, abdominal pain, constipation Genitourinary: denies: dysuria, frequency Musculoskeletal: denies: foot pain Neurological: denies: weakness, numbness - Medication Medications: Active Medications Generic Name Dose Route Start Last Admin Trade Name Freq PRN Reason Stop Dose Admin Acetaminophen 650 mg 01/20/19 17:46 01/23/19 05:00 Tylenol PO 650 mg Q4H PRN Administration Headache/Fever/Mild Pain (1-3) Aspirin 81 mg 01/21/19 09:00 01/26/19 08:51 Ecotrin PO 81 mg DAILY MARLYN Administration Clopidogrel Bisulfate 75 mg 01/21/19 09:00 01/26/19 08:52 Plavix PO 75 mg DAILY MARLYN Administration Enoxaparin Sodium 40 mg 01/20/19 21:00 01/25/19 20:53 Lovenox SC Not Given 2100 MARLYN Famotidine 20 mg 01/26/19 09:00 01/26/19 08:52 Pepcid PO 20 mg DAILY MARLYN Administration Piperacillin Sod/Tazobactam 100 mls @ 200 mls/hr 01/24/19 16:00 01/26/19 03: 45 Sod 3.375 gm/ Sodium Chloride IVPB 100 mls Q6H MARLYN Administration Sodium Chloride 1,000 mls @ 125 mls/hr 01/25/19 08:56 01/26/19 08:54 Normal Saline 0.9% IV Not Given .Q8H MARLYN Levothyroxine Sodium 25 mcg 01/21/19 06:00 01/26/19 04:46 Synthroid PO 25 mcg 0600 MARLYN Administration Lisinopril 10 mg 01/23/19 21:00 01/26/19 08:52 Zestril PO 10 mg BID MARLYN Administration Saccharomyces Boulardii 250 mg 01/21/19 09:00 01/26/19 08:51 Florastor PO 250 mg DAILY MARLYN Administration Sodium Chloride 10 ml 01/24/19 09:00 01/26/19 08:53 Flush - Normal Saline IVF Not Given Q12HR MARLYN Tramadol HCl 50 mg 01/20/19 18:02 01/26/19 03:48 Ultram PO 50 mg Q6H PRN Administration Moderate Pain (4-6) - Exam General Appearance: NAD, awake alert Eye: PERRL, anicteric sclera ENT: normocephalic atraumatic, no oropharyngeal lesions, moist mucosa Neck: supple, symmetric, no JVD Heart: RRR, no murmur, no gallops, no rubs, diminshed peripheral pulses (1+ L. pedal pulse, R. pulses deferred due to wound dressings) Respiratory: CTAB, no wheezes, no rales, no ronchi, normal chest expansion, no tachypnea Gastrointestinal: soft, non-tender, non-distended, normal bowel sounds, no palpable masses Extremities: no cyanosis, no clubbing, no edema Extremeties - other findings: R. foot dressing is clean and intact, boot is present for ambulation assist Skin: normal turgor Neurological: normal sensation to touch, no weakness Musculoskeletal: normal tone Psychiatric: normal affect, normal behavior, A&O x 3 Hosp A/P (1) MICHAEL (acute kidney injury) Code(s): N17.9 - ACUTE KIDNEY FAILURE, UNSPECIFIED Status: Acute Plan: IVFs with NS, avoid nephrotoxic meds and limit contrast exposure, worsening renal fxn, hold OTONIEL-i, serial creatinine (2) Postoperative anemia due to acute blood loss Code(s): D62 - ACUTE POSTHEMORRHAGIC ANEMIA Status: Acute Plan: H&H stable from yesterday. Continue to monitor, repeat H/H in am (3) Gangrene of right foot Code(s): I96 - GANGRENE, NOT ELSEWHERE CLASSIFIED Status: Acute Plan: S/P transmetatarsal amputation, POD#2, surgical dressing (4) Osteomyelitis of right foot Code(s): M86.9 - OSTEOMYELITIS, UNSPECIFIED Status: Acute Qualifiers: Osteomyelitis type: subacute Qualified Code(s): M86.271 - Subacute osteomyelitis, right ankle and foot (5) PVD (peripheral vascular disease) Code(s): I73.9 - PERIPHERAL VASCULAR DISEASE, UNSPECIFIED Status: Chronic Plan: Continue ASA/Plavix (6) Hyponatremia Code(s): E87.1 - HYPO-OSMOLALITY AND HYPONATREMIA Status: Chronic (7) DM (diabetes mellitus) type II uncontrolled, periph vascular disorder Code(s): E11.51 - TYPE 2 DIABETES W DIABETIC PERIPHERAL ANGIOPATH W/O GANGRENE; E11.65 - TYPE 2 DIABETES MELLITUS WITH HYPERGLYCEMIA Status: Chronic (8) HTN (hypertension) Code(s): I10 - ESSENTIAL (PRIMARY) HYPERTENSION Status: Chronic Qualifiers: Hypertension type: essential hypertension Qualified Code(s): I10 - Essential (primary) hypertension Plan: Currently controlled on lisinopril 10mg BID - Plan plan discussed w/ family, continue antibiotics, PT/OT, social media assistant Stable overall Monitor renal fxn closely given worsening MICHAEL Hold OTONIEL-i WCT for wound vac application AM lab: BMP, H/H Likely home in 24h if creatinine improving
[2019-01-26] MEDS ORDERED: Vancomycin HCl 1.5 GM in Sodium Chloride 0.9% 250 ML 300 ML IVPB SCH (18:00)
[2019-01-26] MEDS: Piperacillin/Tazobactam 2.25 GM in Sodium Chloride 0.9% 100 ML IVPB SCH (18:24)
[2019-01-26 18:36] LABS: Vancomycin, Random 28.9 ug/mL (See Comment)
[2019-01-26] MEDS: Enoxaparin Sodium 30 MG/0.3 ML SYRINGE SC SCH ×2 (20:24→20:26)
[2019-01-27] MEDS: Piperacillin/Tazobactam 2.25 GM in Sodium Chloride 0.9% 100 ML IVPB SCH (02:24)
[2019-01-27] MEDS: Levothyroxine Sodium 25 MCG TAB PO SCH (05:21)
[2019-01-27] MEDS: Sodium Chloride 0.9% 1,000 ML IV SCH ×4 (05:22→17:52)
[2019-01-27 05:28] LABS: Platelet Count 272 thou/uL (130-400)
[2019-01-27 05:47] LABS: Anion Gap 11 mmol/L (10-20); BUN (Urea Nitrogen) 14 mg/dL (8.4-25.7); Calc. Creatinine Clearance 45 mL/min (70-130); Calcium 8.8 mg/dL (7.8-10.44); Carbon Dioxide 26 mmol/L (22-29); Chloride 103 mmol/L (98-107); Estimated GFR-MDRD 29; Glucose 99 mg/dL (70-105); Sodium 136 mmol/L (136-145)
[2019-01-27] MEDS: Famotidine 20 MG TAB PO SCH (07:40)
[2019-01-27] MEDS: Clopidogrel Bisulfate 75 MG TAB PO SCH (07:40)
[2019-01-27] MEDS: Acetaminophen 325 MG TAB PO PRN (07:40)
[2019-01-27] MEDS: Aspirin 81 mg Enteric Coated Tablet PO SCH (07:40)
[2019-01-27] MEDS: Saccharomyces boulardii 250 MG CAP PO SCH (07:40)
[2019-01-27] MEDS: traMADol HCl 50 MG TAB PO PRN (12:08)
--- NOTE | 2019-01-27 14:00 | PDOC.HOSPP ---
- Subjective Encounter Date: 01/27/19 Encounter Time: 13:50 Subjective: f/u s/p R transmetatarsal amputation with postop acute anemia. Feels ok overall and tx with wound vac. - Objective Vital Signs & Weight: Vital Signs (12 hours) Temp Pulse Resp BP Pulse Ox 01/27/19 12:19 98.1 F 85 20 141/73 H 94 L 01/27/19 07:54 97 01/27/19 07:51 97.9 F 98 20 164/89 H 97 01/27/19 04:00 98.1 F 101 H 21 H 137/73 96 Weight Admit Weight 205 lb 0.126 oz Weight 205 lb 0.126 oz I&O: 01/26/19 01/27/19 01/28/19 06:59 06:59 06:59 Intake Total 3900 350 Output Total 1050 Balance 2850 350 Result Diagrams: 01/27/19 04:54 01/27/19 04:54 Additional Labs: Accuchecks 01/27/19 01/27/19 01/26/19 12:14 04:12 20:16 POC Glucose 128 H 105 145 H 01/26/19 16:35 POC Glucose 144 H Microbiology 01/24/19 08:23 Foot - Bone Bacterial Culture - Preliminary 01/24/19 08:23 Foot - Bone Bacterial Culture - Preliminary 01/20/19 14:01 Venous blood - Right Hand Blood Culture - Preliminary Specimen has been received and culture in progress. No Growth to date. 01/20/19 14:01 Venous blood - Left Arm Blood Culture - Preliminary Specimen has been received and culture in progress. No Growth to date. Laboratory Tests 01/20/19 01/20/19 01/20/19 14:01 14:01 14:01 WBC 15.0 H Sodium 126 L Creatinine Lactic Acid 2.6 H 01/20/19 01/22/19 01/25/19 17:56 05:08 05:15 WBC Sodium 131 L Creatinine 0.70 1.79 H Lactic Acid 1.0 Hospitalist ROS - Medication Medications: Active Medications Generic Name Dose Route Start Last Admin Trade Name Freq PRN Reason Stop Dose Admin Acetaminophen 650 mg 01/20/19 17:46 01/27/19 07:40 Tylenol PO 650 mg Q4H PRN Administration Headache/Fever/Mild Pain (1-3) Aspirin 81 mg 01/21/19 09:00 01/27/19 07:40 Ecotrin PO 81 mg DAILY MARLYN Administration Clopidogrel Bisulfate 75 mg 01/21/19 09:00 01/27/19 07:40 Plavix PO 75 mg DAILY MARLYN Administration Famotidine 20 mg 01/26/19 09:00 01/27/19 07:40 Pepcid PO 20 mg DAILY MARLYN Administration Sodium Chloride 1,000 mls @ 125 mls/hr 01/25/19 08:56 01/27/19 08:55 Normal Saline 0.9% IV Not Given .Q8H MARLYN Levothyroxine Sodium 25 mcg 01/21/19 06:00 01/27/19 05:21 Synthroid PO 25 mcg 0600 MARLYN Administration Lisinopril 10 mg 01/23/19 21:00 01/26/19 08:52 Zestril PO 10 mg BID MARLYN Administration Saccharomyces Boulardii 250 mg 01/21/19 09:00 01/27/19 07:40 Florastor PO 250 mg DAILY MARLYN Administration Sodium Chloride 10 ml 01/24/19 09:00 01/27/19 07:42 Flush - Normal Saline IVF Not Given Q12HR MARLYN Tramadol HCl 50 mg 01/20/19 18:02 01/27/19 12:08 Ultram PO 50 mg Q6H PRN Administration Moderate Pain (4-6) - Exam General Appearance: NAD, awake alert Eye: PERRL, anicteric sclera ENT: normocephalic atraumatic, no oropharyngeal lesions Neck: supple, symmetric, no JVD, no thyromegaly Heart: RRR, no murmur, no gallops, no rubs, normal peripheral pulses Respiratory: CTAB, no wheezes, no rales, no ronchi, normal chest expansion Gastrointestinal: soft, non-tender, non-distended, normal bowel sounds, no palpable masses Extremeties - other findings: R foot dressing in place with wound vac Skin: normal turgor Neurological: CN's grossly intact, no focal deficits, no new deficit Musculoskeletal: normal tone Psychiatric: normal affect, normal behavior, A&O x 3 Hosp A/P (1) MICHAEL (acute kidney injury) Code(s): N17.9 - ACUTE KIDNEY FAILURE, UNSPECIFIED Status: Acute Plan: Likely multifactorial and hypoperfusion, avoid nephrotoxic meds and limit contrast exposure, serial creatinine (2) Postoperative anemia due to acute blood loss Code(s): D62 - ACUTE POSTHEMORRHAGIC ANEMIA Status: Acute Plan: Transfuse 2u PRBC's today, repeat H/H in am (3) Gangrene of right foot Code(s): I96 - GANGRENE, NOT ELSEWHERE CLASSIFIED Status: Acute Plan: s/p R transmetatarsal amputation POD #3, wound vac, pain control (4) Osteomyelitis of right foot Code(s): M86.9 - OSTEOMYELITIS, UNSPECIFIED Status: Acute Qualifiers: Osteomyelitis type: subacute Qualified Code(s): M86.271 - Subacute osteomyelitis, right ankle and foot (5) PVD (peripheral vascular disease) Code(s): I73.9 - PERIPHERAL VASCULAR DISEASE, UNSPECIFIED Status: Chronic (6) Hyponatremia Code(s): E87.1 - HYPO-OSMOLALITY AND HYPONATREMIA Status: Chronic (7) DM (diabetes mellitus) type II uncontrolled, periph vascular disorder Code(s): E11.51 - TYPE 2 DIABETES W DIABETIC PERIPHERAL ANGIOPATH W/O GANGRENE; E11.65 - TYPE 2 DIABETES MELLITUS WITH HYPERGLYCEMIA Status: Chronic (8) HTN (hypertension) Code(s): I10 - ESSENTIAL (PRIMARY) HYPERTENSION Status: Chronic Qualifiers: Hypertension type: essential hypertension Qualified Code(s): I10 - Essential (primary) hypertension - Plan plan discussed w/ family, PT/OT, out of bed/ambulate Stable overall Monitor renal fxn closely given worsening MICHAEL Hold OTONIEL-i WCT for wound vac application AM lab: BMP, H/H Likely home in 24h if creatinine improving
[2019-01-27] MEDS: Iron Polysaccharides Complex 150 MG CAP PO SCH (17:51)
[2019-01-28] MEDS: Levothyroxine Sodium 25 MCG TAB PO SCH (05:21)
[2019-01-28] MEDS: Sodium Chloride 0.9% 1,000 ML IV SCH ×3 (05:21→09:23)
[2019-01-28 06:35] LABS: Hemoglobin 10.8 g/dL (14.0-18.0); Platelet Count 309 thou/uL (130-400)
[2019-01-28 06:45] LABS: Anion Gap 14 mmol/L (10-20); BUN (Urea Nitrogen) 13 mg/dL (8.4-25.7); Calc. Creatinine Clearance 45 mL/min (70-130); Calcium 9.7 mg/dL (7.8-10.44); Carbon Dioxide 25 mmol/L (22-29); Chloride 102 mmol/L (98-107); Estimated GFR-MDRD 29; Glucose 88 mg/dL (70-105); Potassium 4.2 mmol/L (3.5-5.1); Sodium 137 mmol/L (136-145)
[2019-01-28] MEDS: Saccharomyces boulardii 250 MG CAP PO SCH (08:41)
[2019-01-28] MEDS: Iron Polysaccharides Complex 150 MG CAP PO SCH (08:41)
[2019-01-28] MEDS: Famotidine 20 MG TAB PO SCH (08:41)
[2019-01-28] MEDS: Aspirin 81 mg Enteric Coated Tablet PO SCH (08:42)
[2019-01-28] MEDS: Clopidogrel Bisulfate 75 MG TAB PO SCH (08:42)
[2019-01-28] MEDS: Lisinopril 10 MG TAB PO SCH (10:09)
[2019-01-28 13:52] VITALS: BP 161/92; TEMP 98.1
--- NOTE | 2019-01-28 21:27 | DIS ---
DATE OF ADMISSION: 01/20/2019 DATE OF DISCHARGE: 01/28/2019 DISCHARGE DIAGNOSES: 1. Gangrene of the right foot with osteomyelitis, status post transmetatarsal amputation. 2. Peripheral vascular disease. 3. Acute kidney injury, multifactorial. 4. Postoperative anemia secondarily to acute blood loss, status post 2 units of packed red blood cells. 5. Hyponatremia, mild. 6. Diabetes mellitus type 2 with peripheral vascular disease. 7. Hypertension, stable. CONSULTATIONS: Dr. Poon with Vascular Surgery Service. PERTINENT LABORATORY AND X-RAY FINDINGS: Creatinine ranged between 0.60 to 2.35. Estimated GFR ranged between 29 to 90. Lactic acid level ranged between 1.0 to 2.6. CBC showed a hemoglobin ranging between 7.0 to 12.7. Blood cultures x2 dated 01/20/2019, showed no growth at 5 days. Right foot culture dated 01/24/2019, showed Peptostreptococcus indolicus. Three views of the right foot dated 01/20/2019, showed subcutaneous emphysema with possible early osteomyelitis of the 3rd and 4th digits. Duplex arterial ultrasound of the right lower extremity dated 01/21/2019, showed significant atherosclerosis throughout all arteries of the right lower extremity. Evidence for high-grade arterial occlusive disease in the right leg distal to the knee. MRI of the right lower extremity dated 01/22/2019, showed soft tissue gas with infection of the 4th and 5th amputated metatarsals. Osteomyelitis of the distal 4th and 5th metatarsals. Also noted involvement of the 3rd and 4th toes. Pathology evaluation of the right foot showed gangrenous changes. HOSPITAL COURSE: The patient was initially admitted after presenting with right foot discoloration in the context of known peripheral vascular disease, status post right 1st and 2nd toe amputation. The patient was noted with blackened discoloration of the right foot with evidence of necrosis and gangrene. The patient underwent evaluation including vascular study showing occlusive vascular disease below the knee. The patient was evaluated by the Vascular Surgery Service with recommendations to pursue transmetatarsal amputation of the right foot. MRI of the right foot did confirm evidence of extensive osteomyelitis and gangrene necessitating the amputation. The patient underwent procedure with postoperative acute blood loss anemia requiring 2 units of packed red blood cells. Pain control was instituted with oral medications and the patient was placed on wound VAC therapy. The patient was noted with acute kidney injury during the hospital course, likely multifactorial including volume depletion, hypoperfusion, acute anemia, and iatrogenic influence with lisinopril. The patient received IV fluids and had excellent urine output throughout the hospital course. The patient was discontinued on lisinopril and nephrotoxic agents with recommendations for outpatient followup and adequate hydration. The patient was evaluated for home wound VAC therapy and approved for home health services. I have examined the patient at the time of discharge and discussed followup instructions. The patient verbalized understanding and in agreement, ready for discharge on 01/28/2019. DISCHARGE MEDICATIONS: 1. Enteric-coated aspirin 81 mg p.o. daily. 2. Plavix 75 mg p.o. daily. 3. Levothyroxine 25 mcg p.o. daily. 4. Niferex 150 mg p.o. b.i.d. 5. Lisinopril 10 mg p.o. b.i.d., hold x4 days. 6. Metformin 1000 mg p.o. b.i.d., hold x4 days. 7. Tramadol 50 mg p.o. q.6 hours p.r.n. pain. FOLLOWUP: The patient may follow up with his primary care provider, Dr. Sapna Finney in [place], [place] within 7 days of discharge. The patient will follow up with Dr. Yg Gallegos with Nephrology Service within 7 days of discharge. The patient may follow up with Dr. Poon with Vascular Surgery Service in 2 to 3 weeks after discharge. CONDITION ON DISCHARGE: Stable. ACTIVITY: Ad-immanuel. DIET: ADA and heart healthy. SPECIAL INSTRUCTIONS: Continue wound VAC therapy with biweekly wound VAC changes. Recommend repeat basic metabolic profile and CBC at first followup visit with PCP. CODE STATUS: Full. DISPOSITION: Home with home health services on 01/28/2019. TIME SPENT: Total time preparing and coordinating discharge is 40 minutes. Job ID: [id number]
--- NOTE | 2019-01-30 04:04 | PQF ---
[employer] Quality Assistant Crystal Reports Winform Viewer IVAN JUSTIN CHARLES DO [id number] [id number] CLINICAL DOCUMENTATION CLARIFICATION FORM: POST DISCHARGE Addendum to original discharge summary date: ____ Late entry note date: __ DATE: 01/30/19 ATTN: Jay Crocker Please exercise your independent, professional judgment in responding to the clarification form. Clinical indicators are provided on the bottom of this form for your review Can you please further specify the patient diagnosis? Please check appropriate box(es): [ ] Sepsis due to: (Pna, UTI, gangrenous gall bladder, etc.) [ ] SIRS due to non-infectious process (please specify etiology) [ ] with organ dysfunction [ ] without organ dysfunction [ ] Severe sepsis with acute organ dysfunction of: (Examples: respiratory failure, encephalopathy, acute kidney failure, other) [ ] Septic Shock [ x ] Localized infection without sepsis [ ] Other diagnosis please specify [ ] Unable to determine In addition, please specify: Present on Admission (POA): [ x ] Yes [ ] No [ ] Unable to determine For continuity of documentation, please document condition throughout progress notes and discharge summary. Thank You. CLINICAL INDICATORS H&P pg1 01/20- [place] [id number]. H&P pg1 01/20- patient has been afebrile, but was mildly tachycardic on arrival , which has improved with IV fluids H&P pg2 01/20- "BP 151/84, MA 93, RR 16, temp 98.2F" H&P pg3 01/20- Osteomyelitis of the third and fourth toes of right lower extremity, patient meeting sepsis criteria on arrival H&P pg3 01/20- "Laboratory data: Lactic acid 2.6" RISK FACTORS Osteomyelitis-H&P pg3 01/20 Gangrene-H&P pg3 01/20 DM type 2-H&P pg3 01/20 Obesity-H&P pg1 01/20 TREATMENTS: Right transmetatarsal amputation-OP note 01/24 IV Fluids- 01/20/19 IV broad spectrum antibiotics-AUG 03 Foot X-ray 01/20 (This form is maintained as a part of the permanent medical record) 2014 [email or web address], [email or web address]. All Rights Reserved [email or web address] [not provided] MTDD
== END 2019-01-28 15:31 | disposition home health service (06) | DRG 617 ==
LOC: ERS 13:37 → T4-B 18:01
PROVIDERS: ADMIT Internal Medicine; ATTEND Internal Medicine
PROC: 0Y6M0Z9 Detachment at Right Foot, Partial 1st Ray, Open Approach (ICD-10-PCS; principal; 2019-01-24)
DX: E11.69 Type 2 diabetes mellitus with other specified complication (principal); M86.271 Subacute osteomyelitis, right ankle and foot; E11.52 Type 2 diabetes mellitus with diabetic peripheral angiopathy with gangrene; I96 Gangrene, not elsewhere classified; D62 Acute posthemorrhagic anemia; E87.1 Hypo-osmolality and hyponatremia; I10 Essential (primary) hypertension; E66.9 Obesity, unspecified; E03.9 Hypothyroidism, unspecified; N17.9 Acute kidney failure, unspecified; Z68.28 Body mass index [BMI] 28.0-28.9, adult; Z89.411 Acquired absence of right great toe; Z89.421 Acquired absence of other right toe(s); Z79.84 Long term (current) use of oral hypoglycemic drugs; Z79.02 Long term (current) use of antithrombotics/antiplatelets; Z79.82 Long term (current) use of aspirin
CPT/HCPCS: 36415; 36416; 36430; 80048; 80053; 80202; 83605; 85007; 85014; 85018; 85025; 85027; 85049; 86850; 86900; 86901; 87040; 87070; 87076; 87205; 88305; 88311; 93923; 96361; 96365; 96367; J0692; J1650; J2001; J2405; J2543; J2704; J2765; J3010; J3370; J3490; J7050; P9016